=== PATIENT | male | born 1950 | race Caucasian/White ===

== ENCOUNTER 2017-05-09 10:32 | Inpatient (IN) | payer OTHER, MEDICARE ==
[~2017-05-09] VITALS: Ht 180.3 cm; Wt 102.1 kg
[~2017-05-09 10:32] MED LIST: AMOX-CLAV 875-1 EACH PO; GUAIFENESIN ER600 MG PO; PROAIR HFA8.5 GM INH
[2017-05-09 11:00] VITALS: BP 124/80
[2017-05-09 12:03] LABS: ABSOLUTE BASOPHIL COUNT 0.1 /CUMM (0.0-0.2); ABSOLUTE EOSINOPHIL COUNT 0.4 /CUMM (0.0-0.7); ABSOLUTE GRANULOCYTE CT 13.1 /CUMM (1.4-6.5); ABSOLUTE LYMPH COUNT 1.8 /CUMM (1.2-3.4); ABSOLUTE MONOCYTE COUNT 0.9 /CUMM (0.10-0.60); BASOPHIL % 0.6 % (0.0-2.0); EOSINOPHIL % 2.5 % (0-5); GRANULOCYTE % 80.5 % (42.2-75.2); HEMATOCRIT 39.7 % (42-52); MEAN CORPUSCULAR HGB 28.9 PG (27.0-31.0); MEAN CORPUSCULAR HGB CONC 33.3 G/DL (33.0-37.0); MEAN CORPUSCULAR VOLUME 86.6 FL (80.0-94.0); PLATELET COUNT 579 /CUMM (130-400); RBC DISTRIBUTION WIDTH 15.3 % (11.5-14.5); RED BLOOD CELL CT 4.58 /CUMM (4.70-6.10); WHITE BLOOD CELL COUNT 16.3 /CUMM (4.8-10.8)
--- NOTE | 2017-05-09 12:05 | RADIOLOGY REPORT ---
EXAMINATION: XR CHEST CLINICAL INFORMATION: Right-sided chest pain. Lung cancer. Hemoptysis. COMPARISON: 04/05/[address] 03/03/2017. TECHNIQUE: 2 frontal and 2 lateral views of the chest. FINDINGS: There is a new abnormal opacity at the right base. The right heart border is obscured and the hilum inferiorly displaced. This appears due to consolidation of the right middle lobe. The lateral view suggests bulging of the fissures. This in turn is concerning for a centrally obstructing lesion. Prior chest CT revealed secretions in the trachea and a mass with adenopathy occluding the bronchus intermedius. Recurrence is favored. Repeat contrast-enhanced chest CT is advised. The remainder of the heart and mediastinum are stable. No edema. No acute osseous finding. Nonobstructive gas pattern. IMPRESSION: Right middle lobe consolidation with bulging fissures suspicious for postobstructive change. Prior CT with right hilar mass and adenopathy causing occlusion of the bronchus intermedius. Suspect recurrence. Recommend repeat CT of the chest with contrast.
[2017-05-09 12:12] LABS: PTT 30 SEC (25-37)
--- NOTE | 2017-05-09 12:35 | ED GENERAL ADULT ---
History of Present Illness General Chief Complaint: General Adult Stated Complaint: MIKE YAS, HEMOPTISIS, HX LUNG CA Source: patient, old records Exam Limitations: no limitations Allergies Coded Allergies: No Known Allergies (03/03/17) Reconcile Medications Albuterol Sulfate (Proair Hfa) 90 MCG HFA.AER.AD 2 PUF INH Q4-6 PRN PRN shortness of breath Amoxicillin/Clavulanate Potass (Amox-Clav 875-125 MG Tablet) 875 MG-125 MG TABLET 1 TAB PO Q12 Pneumonia Guaifenesin (Guaifenesin ER) 600 MG TAB.ER.12H 1 TAB PO Q12 mucus Triage Note: PT TO ED SIB DR SORENSON FOR EVAL. PT STATES THAT HE HAS HAD BLOOD IN HIS MUCUS X2 DAYS. WAS RECENTLY DX WITH LUNG CA. DENIES ANY CHANGE WITH BREATH. REPORTS HIS RIGHT SIDE HAS BEEN HURTING MORE WELL. Triage Nurses Notes Reviewed? yes Onset: Gradual Duration: day(s): (3), changing over time Timing: single episode today Injury Environment: home Severity: mild, moderate No Modifying Factors: none Associated Symptoms: cough, chest pain HPI: 67-year-old male past medical history of hyperlipidemia and lung cancer presents for evaluation of hemoptysis. Patient states that over the past week or so he has had a cough productive of sputum. 2- 3 days ago he started noticing blood streaks in his sputum. He states that this was worse 2 days ago and has improved today with only small amounts of blood in the sputum. He also reports some right-sided rib/chest pain that has been present for the past several days. It is worse with touching the area and deep inspiration. He denies any shortness of breath or fever. He was treated for pneumonia last month. He is not yet BEEN treated for lung cancer. (Deon LYLES,Pranay) Vital Signs & Intake/Output Vital Signs & Intake/Output Vital Signs Date Time Temp Pulse Resp B/P B/P Pulse O2 O2 Flow FiO2 Mean Ox Delivery Rate 05/09 1431 99.1 79 17 114/72 95 Room Air 05/09 1202 99.2 78 17 107/69 95 Room Air 05/09 1120 Room Air 05/09 1041 98.4 93 18 121/80 94 Room Air (Naomy GONZALES,Yasir Quiroz) Past History Travel History Traveled to Thu past 21 day No Medical History Any Pertinent Medical History? 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 . Hx Contributory? No (Pranay Alfonso) Review of Systems Review of Systems Constitutional: Reports: no symptoms. EENTM: Reports: no symptoms. Respiratory: Reports: see HPI, cough, hemoptysis, sputum production. Cardiovascular: Reports: see HPI, chest pain. GI: Reports: no symptoms. Genitourinary: Reports: no symptoms. Musculoskeletal: Reports: no symptoms. Skin: Reports: no symptoms. Neurological/Psychological: Reports: no symptoms. Hematologic/Endocrine: Reports: no symptoms. Immunologic/Allergic: Reports: no symptoms. All Other Systems: Reviewed and Negative (Pranay Alfonso) Physical Exam Physical Exam General Appearance: well developed/nourished, no apparent distress, alert, awake , comfortable Head: atraumatic, normal appearance Eyes: Bilateral: normal appearance, PERRL, EOMI. Ears, Nose, Throat: normal pharynx, normal ENT inspection, hearing grossly normal Neck: normal inspection, supple, full range of motion Respiratory: no respiratory distress, CHEST WALL IS TENDER TO PALPATION OVER THE RIGHT RIBS AND RIGHT CHEST. rIGHT-SIDED LUNG SOUNDS ARE VERY COARSE WITH SOME RHONCHI. lEFT LUNG SOUNDS ARE CLEAR. nO RESPIRATORY DISTRESS. Cardiovascular: regular rate/rhythm, normal peripheral pulses Peripheral Pulses: 2+ radial (R), 2+ radial (L) Gastrointestinal: normal bowel sounds, soft, non-tender, no organomegaly Back: normal inspection, normal range of motion, no vertebral tenderness Extremities: normal inspection, normal range of motion, no edema Neurologic/Psych: no motor/sensory deficits, awake, alert, oriented x 3 Skin: intact, normal color, warm/dry Core Measures ACS in differential dx? No CVA/TIA Diagnosis: No Sepsis Present: No Sepsis Focused Exam Completed? No (Deon LYLESPranay) Progress Differential Diagnoses I considered the following diagnoses in my evaluation of the patient: [Pulmonary embolism, pneumonia, lung cancer, empyema, pleural effusion, sepsis, acute coronary syndrome, rib fracture, metastasis] Diagnostic Imaging: Viewed by Me: Radiology Read, CT Scan. Discussed w/RAD: Radiology Read, CT Scan. Radiology Impression: PATIENT: CHRISTI KAM JR PRESENT AGE: 67 PATIENT ACCOUNT NO: [id number] : 49 LOCATION: [facility] ORDERING PHYSICIAN: Pranay LYLES SERVICE DATE: 05/09/17 EXAM TYPE: CAT - CTA CHEST-PULMONARY EMBOLISM EXAMINATION: CT ANGIOGRAM OF THE CHEST WITH CONTRAST (CT PULMONARY ANGIOGRAM FOR PE) CLINICAL INFORMATION: Cough and chest pain. Hemoptysis. COMPARISON: Chest CT from 03/03/2017. TECHNIQUE: Prior to contrast administration, noncontrast localization images were obtained. Subsequently, multidetector volumetric imaging was performed from the thoracic inlet to below the diaphragms following the administration of 95 mL Optiray 350 intravenous contrast. No contrast reaction reported. Sagittal, coronal, and MIP oblique sagittal reformatted images were obtained on the CT workstation, uploaded to PACS, and reviewed. Total exam dose-length product 474 mGy-cm FINDINGS: QUALITY OF STUDY/CONTRAST BOLUS: Satisfactory. PULMONARY ARTERIES: No embolic filling defects are identified within the main, lobar or segmental vessels. THORACIC AORTA: Mild atherosclerotic calcification of the thoracic aorta. The mildly dilated ascending thoracic aorta measures 4 cm transverse diameter. LUNGS AND PLEURA: Mild centrilobular emphysema. A lobulated mass of the superior segment of the right lower lobe occludes the bronchus to the superior segment. The mass measures up to approximately 4 cm transverse, 4.2 cm AP -- unchanged if measurements are acquired at same levels on 03/03/2017. Again noted is tumor infiltration into the bronchus intermedius. The right middle lobe bronchi have become occluded. Compared to 03/03/2017, interval development of complete consolidation of the right middle lobe. Persistent mucus plugging within right lower lobe bronchi. The peribronchial consolidation in the right lower lobe has decreased compared to the prior exam. The groundglass and reticular opacity in the anterior segment of the right upper lobe is nonspecific and could represent hemorrhage and/or pneumonitis. Small right pleural effusion is present. MEDIASTINUM: The heart size is normal. No pericardial effusion. No evidence of septal bowing or right heart strain. The increasing subcarinal lymphadenopathy exerts mild mass effect upon the esophagus. Thyroid gland is unremarkable. LYMPHATICS: No axillary lymphadenopathy. Within the supraclavicular fossa of the right lower neck, a 0.9 cm lymph node has increased in size. Lymph nodes within the superior mediastinum have enlarged, as well. At the level of the aortic arch, the largest right paratracheal lymph node is 1.3 cm short axis dimension and is not significantly changed compared to 03/03/2017. The area of increasing subcarinal lymphadenopathy is approximately 2.7 cm AP and 4 cm transverse, compared to 1.9 x 3.6 cm on 03/03/2017. UPPER ABDOMEN: No acute findings in the visualized upper abdomen. No reflux of contrast into the hepatic veins to suggest elevated right heart pressures. OSSEOUS STRUCTURES: No acute findings in the degenerated spine. No aggressive osseous lesions. IMPRESSION: 1. No pulmonary embolism. 2. The mass of the superior segment of the right lower lobe infiltrates into and obstructs the bronchus intermedius, unchanged compared to 03/03/2017. Although right lower lobe pneumonia has improved compared to 03/03/2017, there is new, complete consolidation/pneumonia of the right middle lobe with small right pleural effusion. Other findings include increasing subcarinal/mediastinal lymphadenopathy and a new area of groundglass, reticular opacity in the anterior segment of the right upper lobe from hemorrhage and/or pneumonitis. DICTATED BY: Jose Ramon Shields MD DATE/TIME DICTATED:05/09/171347 POPCORN MACHINE OPERATOR:IRINA DATE/TIME TRANSCRIBED:1347 CONFIDENTIAL, DO NOT COPY WITHOUT APPROPRIATE AUTHORIZATION. CXR Impression: PATIENT: CHRISTI KAM PRESENT AGE: 67 PATIENT ACCOUNT NO: [id number] : 49 LOCATION: [facility] ORDERING PHYSICIAN: Pranay LYLES SERVICE DATE: 05/09/17 EXAM TYPE: RAD - XRY- CHEST XRAY, TWO VIEWS EXAMINATION: XR CHEST CLINICAL INFORMATION: Right-sided chest pain. Lung cancer. Hemoptysis. COMPARISON: 04/05/[address] 03/03/2017. TECHNIQUE: 2 frontal and 2 lateral views of the chest. FINDINGS: There is a new abnormal opacity at the right base. The right heart border is obscured and the hilum inferiorly displaced. This appears due to consolidation of the right middle lobe. The lateral view suggests bulging of the fissures. This in turn is concerning for a centrally obstructing lesion. Prior chest CT revealed secretions in the trachea and a mass with adenopathy occluding the bronchus intermedius. Recurrence is favored. Repeat contrast-enhanced chest CT is advised. The remainder of the heart and mediastinum are stable. No edema. No acute osseous finding. Nonobstructive gas pattern. IMPRESSION: Right middle lobe consolidation with bulging fissures suspicious for postobstructive change. Prior CT with right hilar mass and adenopathy causing occlusion of the bronchus intermedius. Suspect recurrence. Recommend repeat CT of the chest with contrast. DICTATED BY: Delfin Prakash MD DATE/TIME DICTATED:05/09/171155 POPCORN MACHINE OPERATOR: IRINA DATE/TIME TRANSCRIBED:05/09/171155 CONFIDENTIAL, DO NOT COPY WITHOUT APPROPRIATE AUTHORIZATION. Initial ED EKG: normal sinus rhythm, no ST T wave changes (Pranay Alfonso) Plan of Care: Orders Procedure Date/time Status Regular Diet 05/09 D Active Patient Data 05/09 1445 Active Misc Message 05/09 1442 Active ED Holding Orders 05/09 1442 Active Admit to inpatient 05/09 1442 Active Vital Signs 05/09 1442 Active Code Status 05/09 1442 Active BLOOD CULTURE 05/09 1440 Active Add-on Test (ER Only) 05/09 1416 Active URINALYSIS 05/09 1130 Complete TROPONIN LEVEL 05/09 1130 Complete PARTIAL THROMBOPLASTIN TIME 05/09 1130 Complete PROTHROMBIN TIME 05/09 1130 Complete COMPREHENSIVE METABOLIC PANEL 05/09 1130 Complete CBC WITHOUT DIFFERENTIAL 05/09 1130 Complete EKG 05/09 1130 Active Current Medications Sig/Julian Start time Last Medication Dose Stop Time Status Admin Sodium Chloride 1,000 ML BOLUS ONE 05/09 1500 AC (Normal Saline 0.9%) 05/09 1559 Vancomycin HCl 1,000 MG ONCE ONE 05/09 1445 AC Sodium Chloride 250 ML 05/09 1544 (Normal Saline 0.9%) Laboratory Tests 05/09/17 1315: Urinalysis LIGHT H, Urine Color PETER, Urine Clarity CLEAR, Urine pH 6.0, Ur Specific [place] >= 1.030, Urine Protein 30 H, Urine Ketones TRACE H, Urine Nitrite NEG, Urine Bilirubin NEG@ICTO, Urine Urobilinogen 1.0, Ur Leukocyte Esterase NEG, Ur Microscopic SEDIMENT EXAMINED, Urine RBC 1-3, Urine WBC 3-5 H, Ur Epithelial Cells RARE, Urine Bacteria MANY H, Urine Mucus MOD H, Urine Hemoglobin TRACE-LYSED H, Urine Glucose NEG 05/09/17 1153: Anion Gap 16, Estimated GFR > 60, BUN/Creatinine Ratio 18.6, Glucose 113 H, Calcium 8.9, Total Bilirubin 0.3, AST 15 L, ALT 30, Alkaline Phosphatase 71, Troponin I < 0.01, Total Protein 6.8, Albumin 3.4 L, Globulin 3.4, Albumin/ Globulin Ratio 1.0 L, PT 15.0 H, INR 1.43 H, APTT 30, CBC w Diff MAN DIFF ORDERED, RBC 4.58 L, MCV 86.6, MCH 28.9, RDW 15.3 H, MPV 7.0 L, Gran % 80.5 H, Lymphocytes % 10.9 L, Monocytes % 5.5, Eosinophils % 2.5, Basophils % 0.6, Absolute Granulocytes 13.1 H, Segmented Neutrophils 82 H, Absolute Lymphocytes 1.8, Lymphocytes 10 L, Monocytes 5, Absolute Monocytes 0.9 H, Eosinophils 3, Absolute Eosinophils 0.4, Absolute Basophils 0.1, Platelet Estimate INCREASED, Normocytic RBCs VERIFIED, Normochromic RBCs VERIFIED, PUBS MCHC 33.3 Microbiology 05/09 1439 BLOOD: Blood Culture - ORD 05/09 1439 BLOOD: Blood Culture - ORD Patient seen and evaluated. He is newly diagnosed with lung cancer and having hemoptysis. PE is to be ruled out. He was also recently treated for pneumonia. Patient will have basic blood work and CTA. CTA shows evidence of a right-sided pneumonia and pleural effusion. There is no pulmonary embolism. Patient's white blood cell count is elevated to 16,000. He is also orthostatic. Blood cultures lactic acid ordered. Spoke with Dr. Sorenson. He recommends admission for IV antibiotics, infectious disease consult, oncology consult, IV fluids, serial labs, serial imaging. Patient will be treated with vancomycin and Fortaz. Dr. Sorenson also feels that the patient may need bronchial stenting for symptomatic treatment. Case discussed with Dr. Moralez he agrees. (Pranay Alfonso) (Naomy GONZALES,Yasir Quiroz) Departure Departure Disposition: STILL A PATIENT Condition: Stable Clinical Impression Primary Impression: Pneumonia Qualifiers: Pneumonia type: due to unspecified organism Laterality: right Lung location: middle lobe of lung Qualified Code: J18.1 - Lobar pneumonia, unspecified organism Secondary Impressions: Cough with hemoptysis Referrals: Joaquín Yanes MD (PCP/Family) Departure Forms: Customer Survey General Discharge Information Admission Note Spoke With: Melissa Pastor MD Documentation of Exam: Documentation of any treatments & extenuating circumstances including Concerns Regarding Discharge (functional status, medication knowledge or non-compliance, living conditions, etc.) that warrant an admission rather than observation: [IV antibiotics, pulmonology consult, oncology consult, infectious disease consult, IV fluids, follow-up cultures] (Pranay Alfonso) PA/MARBLE MASON Co-Sign Statement Statement: ED Attending supervision documentation- [X] I saw and evaluated the patient. I have also reviewed all the pertinent lab results and diagnostic results. I agree with the findings and the plan of care as documented in the PA's/MARBLE MASON's documentation. Patient presents for evaluation of hemoptysis and a recently diagnosed lung cancer. Physical examination reveals a comfortable and conversant appearing gentleman with mild crackles of the right chest. [] I have reviewed the ED Record and agree with the PA's/MARBLE MASON's documentation. [] Additions or exceptions (if any) to the PAs/MARBLE MASON's note and plan are summarized below: [] (Naomy GONZALES,Yasir Quiroz) Critical Care Note Critical Care Note Critical Care Time: non-applicable (Pranay Alfonso)
--- NOTE | 2017-05-09 14:10 | CT SCAN REPORT ---
EXAMINATION: CT ANGIOGRAM OF THE CHEST WITH CONTRAST (CT PULMONARY ANGIOGRAM FOR PE) CLINICAL INFORMATION: Cough and chest pain. Hemoptysis. COMPARISON: Chest CT from 03/03/2017. TECHNIQUE: Prior to contrast administration, noncontrast localization images were obtained. Subsequently, multidetector volumetric imaging was performed from the thoracic inlet to below the diaphragms following the administration of 95 mL Optiray 350 intravenous contrast. No contrast reaction reported. Sagittal, coronal, and MIP oblique sagittal reformatted images were obtained on the CT workstation, uploaded to PACS, and reviewed. Total exam dose-length product 474 mGy-cm FINDINGS: QUALITY OF STUDY/CONTRAST BOLUS: Satisfactory. PULMONARY ARTERIES: No embolic filling defects are identified within the main, lobar or segmental vessels. THORACIC AORTA: Mild atherosclerotic calcification of the thoracic aorta. The mildly dilated ascending thoracic aorta measures 4 cm transverse diameter. LUNGS AND PLEURA: Mild centrilobular emphysema. A lobulated mass of the superior segment of the right lower lobe occludes the bronchus to the superior segment. The mass measures up to approximately 4 cm transverse, 4.2 cm AP -- unchanged if measurements are acquired at same levels on 03/03/2017. Again noted is tumor infiltration into the bronchus intermedius. The right middle lobe bronchi have become occluded. Compared to 03/03/2017, interval development of complete consolidation of the right middle lobe. Persistent mucus plugging within right lower lobe bronchi. The peribronchial consolidation in the right lower lobe has decreased compared to the prior exam. The groundglass and reticular opacity in the anterior segment of the right upper lobe is nonspecific and could represent hemorrhage and/or pneumonitis. Small right pleural effusion is present. MEDIASTINUM: The heart size is normal. No pericardial effusion. No evidence of septal bowing or right heart strain. The increasing subcarinal lymphadenopathy exerts mild mass effect upon the esophagus. Thyroid gland is unremarkable. LYMPHATICS: No axillary lymphadenopathy. Within the supraclavicular fossa of the right lower neck, a 0.9 cm lymph node has increased in size. Lymph nodes within the superior mediastinum have enlarged, as well. At the level of the aortic arch, the largest right paratracheal lymph node is 1.3 cm short axis dimension and is not significantly changed compared to 03/03/2017. The area of increasing subcarinal lymphadenopathy is approximately 2.7 cm AP and 4 cm transverse, compared to 1.9 x 3.6 cm on 03/03/2017. UPPER ABDOMEN: No acute findings in the visualized upper abdomen. No reflux of contrast into the hepatic veins to suggest elevated right heart pressures. OSSEOUS STRUCTURES: No acute findings in the degenerated spine. No aggressive osseous lesions. IMPRESSION: 1. No pulmonary embolism. 2. The mass of the superior segment of the right lower lobe infiltrates into and obstructs the bronchus intermedius, unchanged compared to 03/03/2017. Although right lower lobe pneumonia has improved compared to 03/03/2017, there is new, complete consolidation/pneumonia of the right middle lobe with small right pleural effusion. Other findings include increasing subcarinal/mediastinal lymphadenopathy and a new area of groundglass, reticular opacity in the anterior segment of the right upper lobe from hemorrhage and/or pneumonitis.
--- NOTE | 2017-05-09 17:26 | PN- Att Addend ---
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 Similar presentation in February. Patient appears comfortable, afebrile, WBC 16, normal renal function. RLL pneumonia on CTA. VSS NAD, comfortable, full sentences NCAT Supple RRR Right sided rhonchi Soft, NTND No c/c/e Pulses intact A&Ox3 no focal deficits Current Medications Sig/Julian Start time Last Medication Dose Route Stop Time Status Admin Acetaminophen 650 MG Q6P PRN 05/09 1645 AC PO Benzonatate 100 MG TID 05/09 1705 AC PO Ceftazidime 2,000 MG IQ8 05/10 0000 UNVr IV Ceftazidime 0 .STK-MED ONE 05/09 1621 DC .ROUTE Ceftazidime 1,000 MG ONCE ONE 05/09 1445 DC 05/09 IV 05/09 1446 1626 Enoxaparin Sodium 40 MG 1700 05/09 1700 DC SC Guaifenesin/Codeine 10 ML Q6 05/09 1800 AC Phosphate PO Guaifenesin/Codeine 10 ML Q4P PRN 05/09 1715 DC Phosphate PO Ibuprofen 600 MG Q6P PRN 05/09 1645 AC PO Oxycodone/ 2 TAB Q6P PRN 05/09 1645 AC Acetaminophen PO Sodium Chloride 1,000 ML BOLUS ONE 05/09 1500 DC 05/09 IV 05/09 1559 1549 Vancomycin HCl 1,000 MG DAILY 05/10 1000 UNir Sodium Chloride 250 ML IV Vancomycin HCl 1,000 MG ONCE ONE 05/09 1445 DC 05/09 Sodium Chloride 250 ML IV 05/09 1544 1646 Laboratory Tests 05/09 05/09 1315 1153 Chemistry Sodium (137 - 145 mmol/L) 144 Potassium (3.5 - 5.1 mmol/L) 4.3 Chloride (98 - 107 mmol/L) 106 Carbon Dioxide (22 - 30 mmol/L) 22 Anion Gap (5 - 16) 16 BUN (9 - 20 mg/dL) 13 Creatinine (0.7 - 1.2 mg/dL) 0.7 Estimated GFR (>60 ml/min) > 60 BUN/Creatinine Ratio (7 - 25 %) 18.6 Glucose (65 - 99 mg/dL) 113 H Calcium (8.4 - 10.2 mg/dL) 8.9 Total Bilirubin (0.2 - 1.3 mg/dL) 0.3 AST (17 - 59 U/L) 15 L ALT (21 - 72 U/L) 30 Alkaline Phosphatase (< 127 U/L) 71 Troponin I (<0.11 ng/ml) < 0.01 Total Protein (6.3 - 8.2 g/dL) 6.8 Albumin (3.5 - 5.0 g/dL) 3.4 L Globulin (1.9 - 4.2 gm/dL) 3.4 Albumin/Globulin Ratio (1.1 - 2.2 %) 1.0 L Coagulation PT (9.4 - 12.5 SEC) 15.0 H INR (0.90 - 1.17) 1.43 H APTT (25 - 37 SEC) 30 Hematology CBC w Diff MAN DIFF ORDERED WBC (4.8 - 10.8 /CUMM) 16.3 H RBC (4.70 - 6.10 /CUMM) 4.58 L Hgb (14.0 - 18.0 G/DL) 13.2 L Hct (42 - 52 %) 39.7 L MCV (80.0 - 94.0 FL) 86.6 MCH (27.0 - 31.0 PG) 28.9 RDW (11.5 - 14.5 %) 15.3 H Plt Count (130 - 400 /CUMM) 579 H MPV (7.4 - 10.4 FL) 7.0 L Gran % (42.2 - 75.2 %) 80.5 H Lymphocytes % (20.5 - 51.1 %) 10.9 L Monocytes % (1.7 - 9.3 %) 5.5 Eosinophils % (0 - 5 %) 2.5 Basophils % (0.0 - 2.0 %) 0.6 Absolute Granulocytes (1.4 - 6.5 /CUMM) 13.1 H Segmented Neutrophils (42.2 - 75.2 %) 82 H Absolute Lymphocytes (1.2 - 3.4 /CUMM) 1.8 Lymphocytes (20.5 - 51.1 %) 10 L Monocytes (1.7 - 9.3 %) 5 Absolute Monocytes (0.10 - 0.60 /CUMM) 0.9 H Eosinophils (0 - 5.0 %) 3 Absolute Eosinophils (0.0 - 0.7 /CUMM) 0.4 Absolute Basophils (0.0 - 0.2 /CUMM) 0.1 Platelet Estimate (ADEQUATE) INCREASED Normocytic RBCs VERIFIED Normochromic RBCs VERIFIED PUBS MCHC (33.0 - 37.0 G/DL) 33.3 Urines Urinalysis LIGHT H Urine Color (YEL,AMB,STR) PETER Urine Clarity (CLEAR) CLEAR Urine pH (5.0 - 8.0) 6.0 Ur Specific [place] (1.001 - 1.035) >= 1.030 Urine Protein (NEG,<30 MG/DL) 30 H Urine Ketones (NEG) TRACE H Urine Nitrite (NEG) NEG Urine Bilirubin (NEG) NEG@ICTO Urine Urobilinogen (0.1 - 1.0 EU/dl) 1.0 Ur Leukocyte Esterase (NEG) NEG Ur Microscopic SEDIMENT EXAMINED Urine RBC (0 - 5 /HPF) 1-3 Urine WBC (0 - 2 /HPF) 3-5 H Ur Epithelial Cells (NONE,FEW) RARE Urine Bacteria (NEG/NONE) MANY H Urine Mucus (FEW,NONE) MOD H Urine Hemoglobin (NEG) TRACE-LYSED H Urine Glucose (N MG/DL) NEG Vital Signs Date Time Temp Pulse Resp B/P B/P Pulse O2 O2 Flow FiO2 Mean Ox Delivery Rate 05/09 1431 99.1 79 17 114/72 95 Room Air 05/09 1202 99.2 78 17 107/69 95 Room Air 05/09 1120 Room Air 05/09 1041 98.4 93 18 121/80 94 Room Air Intake & Output 05/09 1600 05/09 0800 05/09 0000 Intake Total 200 Output Total Balance 200 Intake, Oral 200 1. RLL post-obstructive pneumonia 2. Right sided squamous cell carcinoma of the lung Plan - Admit to medicine, Vancomycin, Ceftazidime, pulmonary consult, CT surgery consult for possible bronchial stent, cultures.
--- NOTE | 2017-05-09 21:39 | Event Note ---
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 He Presents to [place] emergency department complaining of worsening productive cough and shortness of breath for 3 days. Also Patient reports having blood streaked sputum which has been associated with fever, chills. Otherwise he deny any chest pain, wheezing, orthopnea, heart racing. Patient stated that he had a stress test on the [facility] on Sunday for further assessment for possibility of surgical resection of his lung cancer, patient did not know the stage of his lung cancer. Physical examination, lab and imaging as above. Problem list: -Right obstructive pneumonia -Hemoptysis -Squamous cell lung cancer Plan: -Admit patient to general medicine floor -Vitals every shift -Start the patient on IV ceftazidime and vancomycin -TRC nebs as needed -Guanfacine, codeine and tessalon to suppress cough reflux. -Pulmonary consultation -Cardiothoracic consultation -Heart healthy diet -Pain pathway -DVT prophylaxis: Alps -Full code
--- NOTE | 2017-05-09 21:56 | Cons- Pulmonary ---
General Information and HPI Consulting Request Date of Consult: 05/09/17 Requested By: ER Reason for Consult: hemoptysis Source of Information: patient Exam Limitations: no limitations History of Present Illness: 67 year old man. Recently diagnosed with squamous cell carcinoma. Endobronchial lesion. Presents with bloody streaked phlegm, no obvious overt hemoptysis. Wbc 16.3, cough, dyspnea. He is on room air. He has had some chest discomfort with cough on the right side that has subsided. His hemoptysis has stopped at this time. His CT reveals a mass of the superior segment of the right lower lobe infiltrates into and obstructs the bronchus intermedius, unchanged compared to 03/03/2017. Although right lower lobe pneumonia has improved compared to 2016, there is new, complete consolidation/pneumonia of the right middle lobe with small right pleural effusion. Other findings include increasing subcarinal/mediastinal lymphadenopathy and a new area of groundglass, reticular opacity in the anterior segment of the right upper lobe. He has undergone an MRI and we are awaiting results. He was also due this Sunday for a stress test to evaluate his surgical candidacy in anticpation of a negative MRI. No abd pain. No n/v/d/c. No BEAN. No syncope. No fevers. Allergies/Medications Allergies: Coded Allergies: No Known Allergies (03/03/17) Home Med List: No Known Home Medications Current Medications: Current Medications Sig/Julian Start time Last Medication Dose Route Stop Time Status Admin Acetaminophen 650 MG Q6P PRN 05/09 1645 AC PO Benzonatate 100 MG TID 05/09 1705 AC 05/09 PO 1932 Ceftazidime 2,000 MG IQ8 05/10 0000 AC IV Ceftazidime 0 .STK-MED ONE 05/09 1621 DC .ROUTE Ceftazidime 1,000 MG ONCE ONE 05/09 1445 DC 05/09 IV 05/09 1446 1626 Enoxaparin Sodium 40 MG 1700 05/09 1700 DC SC Guaifenesin/Codeine 10 ML Q6 05/09 1800 AC 05/09 Phosphate PO 1932 Guaifenesin/Codeine 10 ML Q4P PRN 05/09 1715 DC Phosphate PO Ibuprofen 600 MG Q6P PRN 05/09 1645 AC PO Oxycodone/ 2 TAB Q6P PRN 05/09 1645 AC Acetaminophen PO Sodium Chloride 1,000 ML BOLUS ONE 05/09 1500 DC 05/09 IV 05/09 1559 1549 Vancomycin HCl 1,000 MG DAILY 05/10 1000 AC Sodium Chloride 250 ML IV Vancomycin HCl 1,000 MG ONCE ONE 05/09 1445 DC 05/09 Sodium Chloride 250 ML IV 05/09 1544 1646 Review of Systems Comments 18 pt ros reviewed pertinent positives and negatives in the HPI otherwise negative Past History Travel History Traveled to [place] past 21 day No Medical History Neurological: NONE EENT: NONE Cardiovascular: hyperlipidemia Respiratory: NONE Gastrointestinal: NONE Hepatic: NONE Renal: NONE Musculoskeletal: NONE Psychiatric: NONE Endocrine: BORDDERLINE DIABETIC Blood Disorders: NONE Cancer(s): lung cancer 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 . Psychosocial History Services at Home: None Living Will? no Functional Ability ADLs Independent: dressing, eating, toileting, bathing. Ambulation: independent IADLs Independent: shopping, housework, finances, food prep, telephone, transportation , medication admin. Exam & Diagnostic Data Last 24 Hrs of Vital Signs/I&O Vital Signs Date Time Temp Pulse Resp B/P B/P Pulse O2 O2 Flow FiO2 Mean Ox Delivery Rate 05/09 2013 98.8 84 18 116/67 93 Room Air 05/09 1757 98.8 100 18 122/75 93 Room Air 05/09 1431 99.1 79 17 114/72 95 Room Air 05/09 1202 99.2 78 17 107/69 95 Room Air 05/09 1120 Room Air 05/09 1041 98.4 93 18 121/80 94 Room Air Intake & Output 05/09 1600 05/09 0800 05/09 0000 Intake Total 200 Output Total Balance 200 Intake, Oral 200 Patient 125 lb Weight Weight Reported by Patient Measurement Method Physical Exam Other Physical Findings: gen awake and alert heent ncat cvs s1, s2 lungs lateral right mid lung crackles abd soft ext without edema Last 48 Hrs of Labs/Linus: Laboratory Tests 05/09/17 1315: Urinalysis LIGHT H, Urine Color PETER, Urine Clarity CLEAR, Urine pH 6.0, Ur Specific [place] >= 1.030, Urine Protein 30 H, Urine Ketones TRACE H, Urine Nitrite NEG, Urine Bilirubin NEG@ICTO, Urine Urobilinogen 1.0, Ur Leukocyte Esterase NEG, Ur Microscopic SEDIMENT EXAMINED, Urine RBC 1-3, Urine WBC 3-5 H, Ur Epithelial Cells RARE, Urine Bacteria MANY H, Urine Mucus MOD H, Urine Hemoglobin TRACE-LYSED H, Urine Glucose NEG 05/09/17 1153: Anion Gap 16, Estimated GFR > 60, BUN/Creatinine Ratio 18.6, Glucose 113 H, Calcium 8.9, Total Bilirubin 0.3, AST 15 L, ALT 30, Alkaline Phosphatase 71, Troponin I < 0.01, Total Protein 6.8, Albumin 3.4 L, Globulin 3.4, Albumin/ Globulin Ratio 1.0 L, PT 15.0 H, INR 1.43 H, APTT 30, CBC w Diff MAN DIFF ORDERED, RBC 4.58 L, MCV 86.6, MCH 28.9, RDW 15.3 H, MPV 7.0 L, Gran % 80.5 H, Lymphocytes % 10.9 L, Monocytes % 5.5, Eosinophils % 2.5, Basophils % 0.6, Absolute Granulocytes 13.1 H, Segmented Neutrophils 82 H, Absolute Lymphocytes 1.8, Lymphocytes 10 L, Monocytes 5, Absolute Monocytes 0.9 H, Eosinophils 3, Absolute Eosinophils 0.4, Absolute Basophils 0.1, Platelet Estimate INCREASED, Normocytic RBCs VERIFIED, Normochromic RBCs VERIFIED, PUBS MCHC 33.3 Assessment/Plan Impression/Plan: Impression 67 year old man. Recently diagnosed with squamous cell carcinoma. Endobronchial lesion. Presents with bloody streaked phlegm, no obvious overt hemoptysis. Wbc 16.3, cough, dyspnea. He is on room air. He has had some chest discomfort with cough on the right side that has subsided. His hemoptysis has stopped at this time. His CT reveals a mass of the superior segment of the right lower lobe infiltrates into and obstructs the bronchus intermedius, unchanged compared to 03/03/2017. Although right lower lobe pneumonia has improved compared to 2016, there is new, complete consolidation/pneumonia of the right middle lobe with small right pleural effusion. Other findings include increasing subcarinal/mediastinal lymphadenopathy and a new area of groundglass, reticular opacity in the anterior segment of the right upper lobe. He has undergone an MRI and we are awaiting results. He was also due this Sunday for a stress test to evaluate his surgical candidacy in anticpation of a negative MRI. No abd pain. No n/v/d/c. No BEAN. No syncope. No fevers. Plan -pneumonia - can be health care associated -broad spectrum abx for the time being -f/u MRI results -stress testing may have to be post poned -check urine legionella ag, strep ag -if overt hemoptysis call immediately -will discuss potential for advanced pulmonary endobronchial interventions if bleeding is continued -tessalon perles, codeine cough syrup, maximize cough suppression DVT prophylaxis at all times (ALPS) avoid chemical prophylaxis in the setting of hemoptysis Consult Acknowledgment - Thank you for your consult request.
--- NOTE | 2017-05-09 22:06 | History & Physical ---
Marcela Tovar MD 05/09/17 2204: General Information and HPI MD Statement: I have seen and personally examined CHRISTI KAM JR and documented this H&P. The patient is a 67 year old M who presented with a patient stated chief complaint of [Productive cough and hemoptysis]. Source of Information: patient, family, old records Exam Limitations: hearing impairment History of Present Illness: 57 years old male who is best medical history of squamous cell carcinoma of the lung diagnosed on February 2017 with subcarinal local metastasis metastasis presents to [place] ED complaining of worsening productive cough and shortness of breath for 3 days, patient reports having blood streaked sputum which has been associated with fever, chills. Patient had similar symptoms back in February when he was diagnosed with squamous cell lung cancer, patient follow-up with Dr. Jeronimo as outpatient and he'll get a PET scan as an outpatient, he was supposed to get stress test soon to decide on his choices for treating his lung cancer including surgery versus chemotherapy versus radiotherapy. Patient has smoking history of 80 PPY, he quit last February when he found out that he has lung cancer, denies alcohol or recreational drug use and only smokes marijuana Patient denies any sick contact Denies recent travel Allergies/Medications Allergies: Coded Allergies: No Known Allergies (03/03/17) Home Med list No Known Home Medications Past History Travel History Traveled to Thu past 21 day No Medical History Neurological: NONE EENT: NONE Cardiovascular: hyperlipidemia Respiratory: NONE Gastrointestinal: NONE Hepatic: NONE Renal: NONE Musculoskeletal: NONE Psychiatric: NONE Endocrine: BORDDERLINE DIABETIC Blood Disorders: NONE Cancer(s): lung cancer 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 . Psychosocial History Services at Home: None Living Will? no Functional Ability ADLs Independent: dressing, eating, toileting, bathing. Ambulation: independent IADLs Independent: shopping, housework, finances, food prep, telephone, transportation , medication admin. Review of Systems Review of Systems Constitutional: Reports: diaphoresis. Cardiovascular: Denies: chest pain. Respiratory: Reports: cough, hemoptysis, short of breath. GI: Denies: no symptoms. Genitourinary: Denies: no symptoms. Musculoskeletal: Denies: no symptoms. Exam & Diagnostic Data Last 24 Hrs of Vital Signs/I&O Vital Signs Date Time Temp Pulse Resp B/P B/P Pulse O2 O2 Flow FiO2 Mean Ox Delivery Rate 05/09 2013 98.8 84 18 116/67 93 Room Air 05/09 1757 98.8 100 18 122/75 93 Room Air 05/09 1431 99.1 79 17 114/72 95 Room Air 05/09 1202 99.2 78 17 107/69 95 Room Air 05/09 1120 Room Air 05/09 1041 98.4 93 18 121/80 94 Room Air Intake & Output 05/09 1600 05/09 0800 05/09 0000 Intake Total 200 Output Total Balance 200 Intake, Oral 200 Patient 125 lb Weight Weight Reported by Patient Measurement Method Physical Exam General Appearance Alert, Oriented X3, Cooperative, No Acute Distress HEENT Atraumatic, PERRLA, EOMI, Mucous Membr. moist/pink Cardiovascular Normal S1, Normal S2, No Murmurs Lungs rales and wheezes, decreased air entery on the right lung Abdomen Normal Bowel Sounds, Soft, No Tenderness Neurological Normal Speech, Strength at 5/5 X4 Ext Extremities No Clubbing, No Cyanosis, No Edema Assessment/Plan Assessment: Assessment: 57 years old male who is best medical history of squamous cell carcinoma of the lung diagnosed on February 2017 with subcarinal local metastasis metastasis presents to [place] ED complaining of worsening productive cough and shortness of breath for 3 days, patient reports having blood streaked sputum which has been associated with fever, chills most likely he has obstructive pneumonia due to his lung cancer Labs on admission: WBC 16.3, hemoglobin 13.2, platelets 579, INR 1.4, urinalysis normal Chest CTA:1. No pulmonary embolism. 2. The mass of the superior segment of the right lower lobe infiltrates into and obstructs the bronchus intermedius, unchanged compared to 03/03/2017. Although right lower lobe pneumonia has improved compared to 03/03/2017, there is new, complete consolidation/pneumonia of the right middle lobe with small right pleural effusion. Other findings include increasing subcarinal/mediastinal lymphadenopathy and a new area of groundglass, reticular opacity in the anterior segment of the right upper lobe from hemorrhage and/or pneumonitis. #Right obstructive pneumonia complicating squamous cell carcinoma Admitted to GEN med floor Obtain pulmonary consult Obtain cardiothoracic consult for possible stent placement IV ceftaz/vancomycin TRC/nebs Vitals every shift Close monitoring of CBC and BEP Pain control according to pain pathway Patient is full code DVT prophylaxis with Alps due to hemoptysis regular diet As Ranked By This Provider Problem List: 1. Obstructive pneumonia 2. Lung cancer 3. Cough with hemoptysis Core Measures/Misc (01/07) Acute Coronary Syndrome ACS Diagnosis: No Congestive Heart Failure Congestive Heart Failure Diagnosis No Cerebrovascular Accident CVA/TIA Diagnosis: No VTE (View Protocol) VTE Risk Factors Age>40 No Mechanical VTE Prophylaxis d/t N/A MechProphylax Ordered No VTE Pharm Prophylaxis d/t Bleeding (Active) Sepsis (View protocol) Sepsis Present: No Tommie Castellon 05/10/17 0754: Resident Review Statement Resident Statement: examined this patient, discussed with internal control specialist, agreed with internal control specialist, discussed with family, reviewed EMR data (avail), discussed with nursing , discussed with case mgmt, reviewed images, amended to note Other Findings: This is 57 years old man with medical history of 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 He Presents to [place] emergency department complaining of worsening productive cough and shortness of breath for 3 days. Also Patient reports having blood streaked sputum which has been associated with fever, chills. Otherwise he deny any chest pain, wheezing, orthopnea, heart racing. Patient stated that he had a stress test on the [facility] on Sunday for further assessment for possibility of surgical resection of his lung cancer, patient did not know the stage of his lung cancer. Physical examination, lab and imaging as above. Problem list: -Right obstructive pneumonia -Hemoptysis -Squamous cell lung cancer Plan: -Admit patient to general medicine floor -Vitals every shift -Start the patient on IV ceftazidime and vancomycin -TRC nebs as needed -Guanfacine, codeine and tessalon to suppress cough reflux. -Pulmonary consultation -Cardiothoracic consultation -Heart healthy diet -Pain pathway -DVT prophylaxis: Alps -Full code
[2017-05-09 23:00] VITALS: BP 124/80
[2017-05-10 06:20] VITALS: BP 110/62
--- NOTE | 2017-05-10 07:15 | PN- Housestaff ---
See Addendum Subjective Follow-up For: -Right obstructive pneumonia -Hemoptysis -Squamous cell lung cancer Subjective: Patient is seen and examined at bedside, continues to complain of productive cough, expectoration of yellowish sputum, weakness, denies fever, chills, nausea or vomiting. Also denies chest pain or diarrhea Review of Systems Constitutional: Denies: no symptoms. Cardiovascular: Denies: no symptoms. Respiratory: Reports: cough, short of breath, sputum production. Gastrointestinal: Denies: no symptoms. Genitourinary: Denies: no symptoms. Musculoskeletal: Denies: no symptoms. Objective Last 24 Hrs of Vital Signs/I&O Vital Signs Date Time Temp Pulse Resp B/P B/P Pulse O2 O2 Flow FiO2 Mean Ox Delivery Rate 05/10 1450 91 Room Air Room Air 05/10 1357 98.0 75 18 104/60 92 Room Air 05/10 1138 Room Air Room Air 05/10 0620 98.4 73 20 110/62 96 Room Air 05/09 2300 99.1 82 16 124/80 93 Room Air 05/09 2210 99.4 81 18 120/77 94 Room Air 05/09 2014 98.8 84 18 116/67 93 Room Air 05/09 1757 98.8 100 18 122/75 93 Room Air Intake & Output 05/10 1600 05/10 0800 05/10 0000 Intake Total 500 300 Output Total Balance 500 300 Intake, Oral 500 300 Patient 225 lb Weight Weight Reported by Patient Measurement Method Physical Exam General Appearance: Alert, Oriented X3, Cooperative, No Acute Distress HEENT: Atraumatic, PERRLA, EOMI, Mucous Membr. 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 No pulmonary embolism. 2. The mass of the superior segment of the right lower lobe infiltrates into and obstructs the bronchus intermedius, unchanged compared to 03/03/2017. Although right lower lobe pneumonia has improved compared to 03/03/2017, there is new, complete consolidation/pneumonia of the right middle lobe with small right pleural effusion. Other findings include increasing subcarinal/mediastinal lymphadenopathy and a new area of groundglass, reticular opacity in the anterior segment of the right upper lobe from hemorrhage and/or pneumonitis. #Right pneumonia Can be healthcare associated Continue to monitor on GEN med floor Obtain cardiothoracic consult for possible stent placement Continue IV ceftaz/vancomycin TRC/nebs Continue Tessalon Perles, codeine syrup Vitals every shift Close monitoring of CBC and BEP Pain control according to pain pathway The patient developed overt hemoptysis we will call pulmonology stat DVT prophylaxis with Alps on August Regular diet Full code Problem List: 1. Cough with hemoptysis 2. Lung cancer Pain Ratin Pain Location: n/a Pain Goal: Remain pain free Pain Plan: pain pathway Tomorrow's Labs & Rationales: cbc bep DVT/Prophylaxis: pharmacological
[2017-05-10 08:52] LABS: ABSOLUTE BASOPHIL COUNT 0.1 /CUMM (0.0-0.2); ABSOLUTE EOSINOPHIL COUNT 0.4 /CUMM (0.0-0.7); ABSOLUTE LYMPH COUNT 1.8 /CUMM (1.2-3.4); ABSOLUTE MONOCYTE COUNT 0.6 /CUMM (0.10-0.60); BASOPHIL % 0.7 % (0.0-2.0); GRANULOCYTE % 78.7 % (42.2-75.2); HEMATOCRIT 37.8 % (42-52); MEAN CORPUSCULAR HGB 28.8 PG (27.0-31.0); MEAN CORPUSCULAR HGB CONC 33.3 G/DL (33.0-37.0); MEAN CORPUSCULAR VOLUME 86.3 FL (80.0-94.0); MEAN PLATELET VOLUME 7.6 FL (7.4-10.4); PLATELET COUNT 533 /CUMM (130-400); RBC DISTRIBUTION WIDTH 15.6 % (11.5-14.5); RED BLOOD CELL CT 4.38 /CUMM (4.70-6.10); WHITE BLOOD CELL COUNT 13.9 /CUMM (4.8-10.8)
--- NOTE | 2017-05-10 11:32 | PN- Pulmonary ---
Subjective HPI/Critical Care Issues: pt seen and examined cough subsided with cough suppressants Objective Current Medications: Current Medications Sig/Julian Start time Last Medication Dose Route Stop Time Status Admin Acetaminophen 650 MG Q6P PRN 05/09 1645 AC PO Benzonatate 100 MG TID 05/10 1000 CAN PO Benzonatate 100 MG TID 05/09 1705 AC 05/10 PO 0800 Ceftazidime 2,000 MG IQ8 05/10 0000 AC 05/10 IV 0800 Ceftazidime 0 .STK-MED ONE 05/09 1621 DC .ROUTE Ceftazidime 1,000 MG ONCE ONE 05/09 1445 DC 05/09 IV 05/09 1446 1626 Enoxaparin Sodium 40 MG 1700 05/09 1700 DC SC Guaifenesin/Codeine 10 ML Q6 05/09 1800 AC 05/10 Phosphate PO 0500 Guaifenesin/Codeine 10 ML Q4P PRN 05/09 1715 DC Phosphate PO Ibuprofen 600 MG Q6P PRN 05/09 1645 AC PO Oxycodone/ 2 TAB Q6P PRN 05/09 1645 AC Acetaminophen PO Sodium Chloride 1,000 ML BOLUS ONE 05/09 1500 DC 05/09 IV 05/09 1559 1549 Vancomycin HCl 1,000 MG DAILY 05/10 1000 AC 05/10 Sodium Chloride 250 ML IV 0800 Vancomycin HCl 1,000 MG ONCE ONE 05/09 1445 DC 05/09 Sodium Chloride 250 ML IV 05/09 1544 1646 Vital Signs & I&O Last 24 Hrs of Vitals and I&O: Vital Signs Date Time Temp Pulse Resp B/P B/P Pulse O2 O2 Flow FiO2 Mean Ox Delivery Rate 05/10 0620 98.4 73 20 110/62 96 Room Air 05/09 2300 99.1 82 16 124/80 93 Room Air 05/09 2210 99.4 81 18 120/77 94 Room Air 05/09 2014 98.8 84 18 116/67 93 Room Air 05/09 1757 98.8 100 18 122/75 93 Room Air 05/09 1431 99.1 79 17 114/72 95 Room Air 05/09 1202 99.2 78 17 107/69 95 Room Air Intake & Output 05/10 1600 05/10 0800 05/10 0000 Intake Total 500 300 Output Total Balance 500 300 Intake, Oral 500 300 Patient 225 lb Weight Weight Reported by Patient Measurement Method Exam Other Physical Findings: gen awake and alert heent ncat cvs s1, s2 lungs lateral right mid lung crackles abd soft ext without edema Results Last 24 Hrs of Lab Results: Laboratory Tests 05/10/17 0750: Anion Gap 14, Estimated GFR > 60, BUN/Creatinine Ratio 15.7, CBC w Diff NO MAN DIFF REQ, RBC 4.38 L, MCV 86.3, MCH 28.8, RDW 15.6 H, MPV 7.6, Gran % 78.7 H, Lymphocytes % 13.0 L, Monocytes % 4.6, Eosinophils % 3.0, Basophils % 0.7, Absolute Granulocytes 11.0 H, Absolute Lymphocytes 1.8, Absolute Monocytes 0.6, Absolute Eosinophils 0.4, Absolute Basophils 0.1, PUBS MCHC 33.3 05/09/17 1315: Urinalysis LIGHT H, Urine Color PETER, Urine Clarity CLEAR, Urine pH 6.0, Ur Specific [place] >= 1.030, Urine Protein 30 H, Urine Ketones TRACE H, Urine Nitrite NEG, Urine Bilirubin NEG@ICTO, Urine Urobilinogen 1.0, Ur Leukocyte Esterase NEG, Ur Microscopic SEDIMENT EXAMINED, Urine RBC 1-3, Urine WBC 3-5 H, Ur Epithelial Cells RARE, Urine Bacteria MANY H, Urine Mucus MOD H, Urine Hemoglobin TRACE-LYSED H, Urine Glucose NEG 05/09/17 1153: Anion Gap 16, Estimated GFR > 60, BUN/Creatinine Ratio 18.6, Glucose 113 H, Calcium 8.9, Total Bilirubin 0.3, AST 15 L, ALT 30, Alkaline Phosphatase 71, Troponin I < 0.01, Total Protein 6.8, Albumin 3.4 L, Globulin 3.4, Albumin/ Globulin Ratio 1.0 L, PT 15.0 H, INR 1.43 H, APTT 30, CBC w Diff MAN DIFF ORDERED, RBC 4.58 L, MCV 86.6, MCH 28.9, RDW 15.3 H, MPV 7.0 L, Gran % 80.5 H, Lymphocytes % 10.9 L, Monocytes % 5.5, Eosinophils % 2.5, Basophils % 0.6, Absolute Granulocytes 13.1 H, Segmented Neutrophils 82 H, Absolute Lymphocytes 1.8, Lymphocytes 10 L, Monocytes 5, Absolute Monocytes 0.9 H, Eosinophils 3, Absolute Eosinophils 0.4, Absolute Basophils 0.1, Platelet Estimate INCREASED, Normocytic RBCs VERIFIED, Normochromic RBCs VERIFIED, PUBS MCHC 33.3 Impression/Plan Impression/Plan Impression/Plan: Impression 67 year old man. Recently diagnosed with squamous cell carcinoma. Endobronchial lesion. RML pneumonia. Plan -pneumonia - can be health care associated -broad spectrum abx for the time being - can consider a respiratory quinolone ( Avelox) upon dc -would need outpt follow up with myself and Dr. Case within a week or so -stress testing has to be post poned -if overt hemoptysis call immediately -will discuss potential for advanced pulmonary endobronchial interventions if bleeding is continued -tessalon perles, codeine cough syrup, maximize cough suppression DVT prophylaxis at all times (ALPS) avoid chemical prophylaxis in the setting of hemoptysis DC planning
[2017-05-10 13:57] VITALS: BP 104/60
[2017-05-10 22:36] VITALS: BP 116/76
[2017-05-11 06:15] VITALS: BP 120/68
--- NOTE | 2017-05-11 06:57 | PN- Housestaff ---
Guy GONZALES,Marcela 05/11/17 0657: Subjective Follow-up For: -Right healthcare pneumonia -Hemoptysis -Squamous cell lung cancer Subjective: Patient is seen and examined at bedside, continues to complain of productive cough, expectoration of yellowish blood streaked sputum, weakness, denies fever, chills, nausea or vomiting. Also denies chest pain or diarrhea Review of Systems Constitutional: Denies: no symptoms. Cardiovascular: Denies: no symptoms. Respiratory: Reports: cough, hemoptysis, sputum production. Gastrointestinal: Denies: no symptoms. Genitourinary: Denies: no symptoms. Musculoskeletal: Denies: no symptoms. Objective Last 24 Hrs of Vital Signs/I&O Vital Signs Date Time Temp Pulse Resp B/P B/P Pulse O2 O2 Flow FiO2 Mean Ox Delivery Rate 05/11 0615 98.1 73 20 120/68 93 Room Air 05/11 0000 Room Air 05/10 2236 98.4 77 20 116/76 94 Room Air 05/10 2045 94 Room Air 05/10 1450 91 Room Air Room Air 05/10 1357 98.0 75 18 104/60 92 Room Air 05/10 1138 Room Air Room Air Intake & Output 05/11 1600 05/11 0800 05/11 0000 Intake Total 210 480 Output Total Balance 210 480 Intake, IV 10 Intake, Oral 200 480 Physical Exam General Appearance: Alert, Oriented X3, Cooperative, No Acute Distress HEENT: Atraumatic, PERRLA, EOMI, Mucous Membr. 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 No pulmonary embolism. 2. The mass of the superior segment of the right lower lobe infiltrates into and obstructs the bronchus intermedius, unchanged compared to 03/03/2017. Although right lower lobe pneumonia has improved compared to 03/03/2017, there is new, complete consolidation/pneumonia of the right middle lobe with small right pleural effusion. Other findings include increasing subcarinal/mediastinal lymphadenopathy and a new area of groundglass, reticular opacity in the anterior segment of the right upper lobe from hemorrhage and/or pneumonitis. #Right pneumonia Can be healthcare associated Continue to monitor on [facility] med floor Obtain cardiothoracic consult for possible stent placement Continue IV ceftaz/vancomycin TRC/nebs Continue Tessalon Perles, codeine syrup Vitals every shift Close monitoring of CBC and BEP Pain control according to pain pathway The patient developed overt hemoptysis we will call pulmonology stat This is stable to be discharged home today on Avelox to finish a total of 7 days course DVT prophylaxis with Alps on August Regular diet Full code Problem List: 1. Cough with hemoptysis 2. Lung cancer 3. Pneumonia Pain Ratin Pain Location: N/A Pain Goal: Remain pain free Pain Plan: pathway Tomorrow's Labs & Rationales: cbc bep Bala Lazar MD 05/11/17 2317: Attending MD Review Statement Attending Statement Attending MD Statement: examined this patient, discuss w/resident/PA/BACK TENDER [employer]ATION [employer], agreed w/resident/PA/BACK TENDER [employer]ATION BO[employer], reviewed EMR data (avail), discussed with nursing, discussed with case mgmt, amended to note Attending Assessment/Plan: The patient was seen and discussed with house staff, case management, nursing and pulmonary (Dr. Jeronimo). OK to discharge to home today on Avelox for total of 10 days. He will follow-up with Drs. Jeronimo and Evie as OP next week. The patient is not a surgical candidate due to subcarinal and mediastinal mets and will need possible bronchial stenting at [facility] and subsequent Oncology/Radiation Oncology evaluations. Dr. Jeronimo will arrange follow up. The patient was informed to return if significant hemoptysis occurs.
--- NOTE | 2017-05-11 07:34 | Patient Discharge Instructions ---
Discharge Instructions General Discharge Information You were seen/treated for: -Right obstructive pneumonia -Hemoptysis -Squamous cell lung cancer Special Instructions: 1- Please fllow up with your senior piping designer in 1 week of discharge 2- please follow up with thoracic surgery in 1 week of discharge 3- please folliow up with oncologist in 1 week of discharge 4- please come back to ED if increase hemoptysis Diet Continue normal diet: Yes Activity Full Activity/No Limits: Yes Acute Coronary Syndrome Inclusion Criteria At DC or during hospital stay patient has or had the following: ACS DIAGNOSIS No Discharge Core Measures Meds if any: Prescribed or Continued at Discharge Meds if any: NOT Prescribed or Continued at Discharge Congestive Heart Failure Inclusion Criteria At DC or during hospital stay patient has or had the following: CHF DIAGNOSIS No Discharge Core Measures Meds if any: Prescribed or Continued at Discharge Meds if any: NOT Prescribed or Continued at Discharge Cerebrovascular accident Inclusion Criteria At DC or during hospital stay patient has or had the following: CVA/TIA Diagnosis No Discharge Core Measures Meds if any: Prescribed or Continued at Discharge Meds if any: NOT Prescribed or Continued at Discharge Venous thromboembolism Inclusion Criteria VTE Diagnosis No VTE Type NONE VTE Confirmed by (Test) NONE Discharge Core Measures - Per Current guidelines, there needs to be overlap - treatment for the first 5 days of Warfarin therapy. - If discharged on Warfarin prior to 5 days of - overlap therapy, the patient will need to be - assessed for post discharge needs including - *Post discharge parental anticoagulation - *Warfarin and/or parental anticoagulation education - *Follow up date to check INR post discharge At least 5 days overlap therapy as Inpatient No Meds if any: Prescribed or Continued at Discharge Note: Overlap Therapy is Warfarin and Anticoagulant Meds if any: NOT Prescribed or Continued at Discharge
[2017-05-11 08:49] LABS: ABSOLUTE BASOPHIL COUNT 0 /CUMM (0.0-0.2); ABSOLUTE EOSINOPHIL COUNT 0.5 /CUMM (0.0-0.7); ABSOLUTE GRANULOCYTE CT 9.7 /CUMM (1.4-6.5); ABSOLUTE MONOCYTE COUNT 0.7 /CUMM (0.10-0.60); BASOPHIL % 0.4 % (0.0-2.0); EOSINOPHIL % 3.5 % (0-5); GRANULOCYTE % 74.8 % (42.2-75.2); HEMATOCRIT 36.1 % (42-52); MEAN CORPUSCULAR HGB 28.6 PG (27.0-31.0); MEAN CORPUSCULAR HGB CONC 33.4 G/DL (33.0-37.0); MEAN CORPUSCULAR VOLUME 85.5 FL (80.0-94.0); MEAN PLATELET VOLUME 7.3 FL (7.4-10.4); PLATELET COUNT 474 /CUMM (130-400); RBC DISTRIBUTION WIDTH 15.3 % (11.5-14.5); RED BLOOD CELL CT 4.22 /CUMM (4.70-6.10)
[2017-05-11] MEDS ORDERED: AVELOX400 M1 PO (11:11)
[2017-05-11] MEDS ORDERED: GUAIFENESIN AC473 M2 PO (11:15)
[2017-05-11] MEDS ORDERED: BENZONATATE100 M1 PO (11:15)
--- NOTE | 2017-05-11 11:20 | Discharge Summary ---
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 No pulmonary embolism. 2. The mass of the superior segment of the right lower lobe infiltrates into and obstructs the bronchus intermedius, unchanged compared to 03/03/2017. Although right lower lobe pneumonia has improved compared to 03/03/2017, there is new, complete consolidation/pneumonia of the right middle lobe with small right pleural effusion. Other findings include increasing subcarinal/mediastinal lymphadenopathy and a new area of groundglass, reticular opacity in the anterior segment of the right upper lobe from hemorrhage and/or pneumonitis. #Right pneumonia Can be healthcare associated Was monitored on on [facility] med floor Was treated by IV ceftaz/vancomycin, on discharge antibiotics were switched to Avelox to complete 7 days course TRC/nebs Was treated by Tessalon Perles, codeine syrup Vitals every shift Close monitoring of CBC and BEP Pain control according to pain pathway On discharge the patient was advised to follow-up with his tooling engineer and the cardiothoracic surgeon and oncologist for treatment options of bronchogenic carcinoma DVT prophylaxis with Alps on August Regular diet Full code Allergies: Coded Allergies: No Known Allergies (03/03/17) Disposition Summary Disposition Principal Diagnosis: -Right obstructive pneumonia -Hemoptysis -Squamous cell lung cancer Additional Diagnosis: -Squamous cell lung cancer Discharge Disposition: home or self care Discharge Instructions General Discharge Information Code Status: Full Code Patient's Diet: Regular diet Patient's Activity: As tolerated Follow-Up Instructions/Appts: 1- Please fllow up with your tooling engineer in 1 week of discharge 2- please follow up with thoracic surgery in 1 week of discharge 3- please folliow up with oncologist in 1 week of discharge 4- please come back to ED if increase hemoptysis Medications at Discharge Discharge Medications: Start taking the following new medications: Benzonatate (Benzonatate) 100 MG CAPSULE 100 Milligram ORAL THREE TIMES DAILY as needed for COUGH Qty = 60 No Refills Comments: Last Taken: 05/11/17 Time: 10AM Codeine Phosphate/Guaifenesi (Guaifenesin AC Cough Syrup) 10 MG-100 MG/5 ML LIQUID 10 Milliliters ORAL EVERY SIX HOURS as needed for COUGH Qty = 3 No Refills Comments: Last Taken: 05/11/17 Time: 12:30 PM Moxifloxacin HCl (Avelox) 400 MG TABLET 1 Tablet ORAL DAILY Qty = 5 No Refills Comments: DID NOT ADMINISTER IN HOSPITAL Copies To: Joaquín GONZALES,Joaquín Attending MD Review Statement Documenting Attending: Bala Lazar MD Other Findings: The patient was seen and agree with the plan of care upon discharge. Will follow -up with Drs. Jeronimo and Evie next week. Will need bronchial stent arranged at [place]. Subsequent Oncology and XRT consultations.
--- NOTE | 2017-05-11 12:58 | PN- Pulmonary ---
Subjective HPI/Critical Care Issues: Patient seen and examined this morning. He appears to be improving and he has no hemoptysis. Discharge planning will occur today. Objective Current Medications: Current Medications Sig/Julian Start time Last Medication Dose Route Stop Time Status Admin Acetaminophen 650 MG Q6P PRN 05/09 1645 AC PO Albuterol Sulfate 3 ML ONCE PRN 05/10 1200 AC INH Benzonatate 100 MG TID 05/09 1705 AC 05/11 PO 0957 Ceftazidime 2,000 MG IQ8 05/10 0000 AC 05/11 IV 0917 Guaifenesin/Codeine 10 ML Q6 05/09 1800 AC 05/11 Phosphate PO 1241 Ibuprofen 600 MG Q6P PRN 05/09 1645 AC PO Oxycodone/ 2 TAB Q6P PRN 05/09 1645 AC Acetaminophen PO Vancomycin HCl 1,000 MG DAILY 05/10 1000 AC 05/11 Sodium Chloride 250 ML IV 0917 Vital Signs & I&O Last 24 Hrs of Vitals and I&O: Vital Signs Date Time Temp Pulse Resp B/P B/P Pulse O2 O2 Flow FiO2 Mean Ox Delivery Rate 05/11 0800 Room Air 05/11 0615 98.1 73 20 120/68 93 Room Air 05/11 0000 Room Air 05/10 2236 98.4 77 20 116/76 94 Room Air 05/10 2045 94 Room Air 05/10 1450 91 Room Air Room Air 05/10 1357 98.0 75 18 104/60 92 Room Air Intake & Output 05/11 1600 05/11 0800 05/11 0000 Intake Total 210 480 Output Total Balance 210 480 Intake, IV 10 Intake, Oral 200 480 Exam Other Physical Findings: gen awake and alert heent ncat cvs s1, s2 lungs lateral right mid lung crackles abd soft ext without edema Results Last 24 Hrs of Lab Results: Laboratory Tests 05/11/17 0752: Anion Gap 12, Estimated GFR > 60, BUN/Creatinine Ratio 17.1, CBC w Diff NO MAN DIFF REQ, RBC 4.22 L, MCV 85.5, MCH 28.6, RDW 15.3 H, MPV 7.3 L, Gran % 74.8, Lymphocytes % 15.8 L, Monocytes % 5.5, Eosinophils % 3.5, Basophils % 0.4, Absolute Granulocytes 9.7 H, Absolute Lymphocytes 2.0, Absolute Monocytes 0.7 H, Absolute Eosinophils 0.5, Absolute Basophils 0, PUBS MCHC 33.4 Impression/Plan Impression/Plan Impression/Plan: Impression 67 year old man. Recently diagnosed with squamous cell carcinoma. Endobronchial lesion. RML pneumonia. Plan -pneumonia - change to a respiratory quinolone (Avelox) upon dc -would need outpt follow up with myself and Dr. Case within a week or so - next week -stress testing has to be post poned -if overt hemoptysis call immediately -will discuss potential for advanced pulmonary endobronchial interventions if bleeding is continued -tessalon perles, codeine cough syrup, maximize cough suppression DVT prophylaxis at all times (ALPS) avoid chemical prophylaxis in the setting of hemoptysis DC planning
[2017-05-11 13:56] VITALS: BP 120/80
== END 2017-05-11 15:33 | DRG 194 ==
LOC: ERH 10:32 → 2NA 14:42 → ERHI 14:42 → ENRESERV 20:05 → ENTRNSPT 22:10 → EDTRNSPTSTS 22:16 → EDTRNSPT 22:32 → CMPTRNSPT 22:54 → 2NA 23:15 → ENPENDDIS 05-11 13:31 → 2NA 05-11 15:33
PROVIDERS: Internal Medicine Hematology & Oncology; Physician Assistant Medical; Student in an Organized Health Care Education/Training Program
DX: J18.9 Pneumonia, unspecified organism (principal); R04.2 Hemoptysis; C77.9 Secondary and unspecified malignant neoplasm of lymph node, unspecified; C34.01 Malignant neoplasm of right main bronchus; R73.03 Prediabetes; R59.0 Localized enlarged lymph nodes; Z87.891 Personal history of nicotine dependence; E78.5 Hyperlipidemia, unspecified; H91.90 Unspecified hearing loss, unspecified ear
CPT/HCPCS: 2NASP; 36415; 71046; 81001; 82436; 87040; 87070; 87449; 87450; 87804; 87804-59; 93005; 93010; 96365; J0713; J1650; J3370; J7040; Q9965

== ENCOUNTER → 2017-12-17 | Day surgery (SDC) | payer OTHER, MEDICARE ==
[~2017-12-17] VITALS: Ht 180.3 cm; Wt 106.6 kg
[~2017-12-17] MED LIST changes: +ANORO ELLIPTA1 EACH; +AVELOX400 M1 PO; +BENZONATATE100 M1 PO; +GUAIFENESIN AC473 M2 PO
--- NOTE | 2017-12-17 10:01 | RADIOLOGY REPORT ---
EXAMINATION: XR PORTABLE CHEST CLINICAL INFORMATION: Status post bronchoscopy. COMPARISON: CXR from 12/12/2017. Chest CT from 09/06/2017. TECHNIQUE: Portable frontal view of the chest was obtained. FINDINGS: Lungs are well expanded. The linear opacity in the perihilar region of the right upper lobe has the appearance of atelectasis. Also, there is suggestion of mild atelectasis in the medial right lower lobe. No acute pulmonary edema, pneumothorax, pneumomediastinum or pleural effusion. Cardiac silhouette is normal in size. There is an ectatic thoracic aorta. The visualized bones are intact. IMPRESSION: - No evidence of pneumothorax or pneumomediastinum after recent bronchoscopy. - Subsegmental atelectasis in the perihilar region of the right upper lobe.
--- NOTE | 2017-12-17 13:46 | Operative Report ---
Operative/Inv Procedure Report Surgery Date: 12/17/17 Name of Procedure: Bronchoscopy with biopsies Pre-Operative Diagnosis: Right lung cancer Post-Operative Diagnosis: Same Estimated Blood Loss: none Surgeon/Biomedical Engineering Professor: Evie Romeo MD,Raymond Godoy Anesthesia: general endotracheal tube Operative/Procedure Note Note: Prior to the start of the procedure I had a long discussion with the patient regarding new thoughts about how we should approach his procedure. Given my review of his previous procedure and the x-rays I felt that it was important to verify that we would have an appropriate margin on the bronchus intermedius. The plan was then changed to a bronchoscopy as a start to evaluate the mucosa of the bronchus intermedius. I explained that if the mucosa appeared normal with an adequate margin that we will go ahead with the procedure. If however there was a sense that there were some mucosal changes that might indicate the possibility of a compromised margin then we would go ahead and get biopsies and wait for those biopsies. I would not in this situation rely upon frozen section because of the often atypical changes we can see related to radiation on frozen section that are not in fact carcinoma. The patient agreed with this approach and we proceeded with induction of general anesthesia. Fiberoptic bronchoscopy was done through the endotracheal tube. On the left side the endobronchial anatomy was normal. On the right side the proximal right mainstem bronchus and the right upper lobe segmental bronchi were all normal. The bronchoscope was then advanced 2 cm beyond the takeoff of the right upper lobe bronchus into the bronchus intermedius. At this point there was a pale appearance to the mucosa and it was somewhat heterogeneous in its appearance. It was not a normal-appearing mucosa and it is quite possible that the visual changes seen were the result of the patient's previous radiation. However given the discussions outlined above a decision was made to take formal biopsies of this area which would be the point of resection for an adequate margin. Specimens were taken and the mucosa was somewhat firm consistent with the prior radiation. There was placed in formalin and sent for permanent histology. There was good hemostasis. The patient was extubated and in the recovery room the reasoning incision behind proceeding as we did was re- explained to the patient and he was in agreement. He was discharged to home without incident.
== END ==
LOC: UNDOADMIN 01:23 → SDA 01:23 → EDSTATUS 07:00 → STS 10:06
DX: C34.91 Malignant neoplasm of unspecified part of right bronchus or lung (principal); J44.9 Chronic obstructive pulmonary disease, unspecified; Z87.891 Personal history of nicotine dependence; Z92.3 Personal history of irradiation
CPT/HCPCS: 36415; 71045; C9290; J0131; J0690; J1644; J3490